=== PATIENT | male | born 1945 | race Caucasian/White ===

== ENCOUNTER → 2017-01-27 | Outpatient (CLI) | payer MEDICARE, OTHER ==
[~2017-01-27] MED LIST: ASPIRIN 81M81 MG/TA2 PO; GLUCOPHAGE500 MG/TAB PO; GLUCOTROL XL2.5 MG PO; GLUCOTROL XL5 MG/TAB PO; HYZAAR; HYZAAR 25 MG-101 TAB PO; JANUVIA 100MG100 MG PO; LEVAQUIN 750MG750 M1 PO; METFORMIN1000 MG PO; NORCO 325 MG-51 TAB PO; [UNRECOGNIZED DRUG - REMARK]
== END ==
LOC: COL.RAD 09:31
DX: I71.9 Aortic aneurysm of unspecified site, without rupture (principal); J43.9 Emphysema, unspecified; R91.8 Other nonspecific abnormal finding of lung field; R91.1 Solitary pulmonary nodule; K44.9 Diaphragmatic hernia without obstruction or gangrene; E27.8 Other specified disorders of adrenal gland; E04.9 Nontoxic goiter, unspecified; E07.89 Other specified disorders of thyroid
CPT/HCPCS: Q9967

== ENCOUNTER → 2018-01-19 | Outpatient (CLI) | payer MEDICARE, OTHER | LOC: COL.RAD 08:16 | DX: I71.4 Abdominal aortic aneurysm, without rupture (principal); E27.8 Other specified disorders of adrenal gland; J43.9 Emphysema, unspecified; Z90.49 Acquired absence of other specified parts of digestive tract; I71.2 Thoracic aortic aneurysm, without rupture | CPT/HCPCS: Q9967 ==

== ENCOUNTER → 2019-04-22 | Outpatient (CLI) | payer MEDICARE, OTHER | LOC: COL.RAD 07:50 | DX: J43.9 Emphysema, unspecified (principal); I71.2 Thoracic aortic aneurysm, without rupture; Z90.49 Acquired absence of other specified parts of digestive tract | CPT/HCPCS: Q9967 ==

== ENCOUNTER → 2021-02-23 | Outpatient (CLI) | payer MEDICARE, OTHER | LOC: COL.RAD 13:57 | DX: Z12.2 Encounter for screening for malignant neoplasm of respiratory organs (principal); F17.210 Nicotine dependence, cigarettes, uncomplicated ==

== ENCOUNTER 2021-07-08 11:57 | Outpatient (CLI) | payer MEDICARE ==
[~2021-07-08] VITALS: Ht 180.3 cm; Wt 75.0 kg
[2021-07-08] VITALS (8 sets, daily range): BP systolic 107–126; BP diastolic 53–74; PULSE 80–112; TEMP 95.3
[2021-07-08] MEDS ORDERED: PROAIR HFA0.09 MG/AC IH (12:32)
[2021-07-08] MEDS ORDERED: ZITHROMAX 250M250 MG PO (12:33)
[2021-07-08] MEDS ORDERED: PREDNISONE20 MG PO (12:34)
[2021-07-08] MEDS ORDERED: HYZAAR 25 MG-101 TAB PO (12:34)
--- NOTE | 2021-07-08 14:00 | NUR ---
Pt escorted out to ED entrance with steady gait. He tolerated infusion and 1 hr obs period without issue. INT was DC'd with catheter intact.
== END 2021-07-08 14:00 | disposition home or self-care (01) ==
LOC: EUO 11:57
DX: U07.1 COVID-19 (principal); E11.9 Type 2 diabetes mellitus without complications; I25.10 Atherosclerotic heart disease of native coronary artery without angina pectoris; J98.4 Other disorders of lung
CPT/HCPCS: M0247; Q0247

== ENCOUNTER 2023-04-16 07:51 | Observation (INO) | payer MEDICARE ==
[~2023-04-16] VITALS: Ht 177.8 cm; Wt 63.0 kg
[~2023-04-16 07:51] MED LIST changes: +ADVIL PM 38 MG-1 TAB PO; +BREZTRI AEROS10.7 GM IH; +CEFTIN500 MG PO; +COREG 6.256.25 MG/TA PO; +DOXYCYCLINE HY100 MG PO; +LEVAQUIN 5500 MG/TA1 PO; +MEDROL 4MG DOSPA4 MG PO; +PREDNISONE10 MG PO; +PREDNISONE20 MG PO; +PROAIR HFA0.09 MG/AC IH; +ZITHROMAX 250M250 MG PO
[2023-04-16 08:23] LABS: BASO # 0.1 K/mm3 (0.0-0.2); BASO % 0.6 % (0.0-2.0); EOS # 0.6 K/mm3 (0.0-0.7); GRAN # 18.3 K/mm3 (1.4-6.5); GRAN % 85.2 % (42.2-75.2); HEMATOCRIT 46.6 % (42.0-52.0); HEMOGLOBIN 14.4 g/dl (13.5-18.0); LYMPH % 4.6 % (20.0-51.0); MEAN CELL VOLUME 98 fl (80.0-100.0); MEAN CORPUSCULAR HEMOGLOBIN 30 pg (27-31); MEAN CORPUSCULAR HGB CONC 31 g/dl (33.0-37.0); MEAN PLATELET VOLUME 10.7 fl (7.4-10.4); MONO # 1.3 K/mm3 (0.1-0.6); MONO % 5.9 % (1.7-9.3); PLATELET COUNT 326 K/mm3 (130-400); RED BLOOD COUNT 4.75 M/mm3 (4.20-5.60); REDCELL DISTRIBUTION WIDTH-CV 12.7 % (11.5-14.5)
[2023-04-16 08:39] LABS: ALBUMIN 3.9 gm/dL (3.4-4.8); BILIRUBIN,TOTAL 0.9 mg/dL (0.2-1.2); CALCIUM 9.7 mg/dL (8.4-10.2); CREATININE, serum 0.76 mg/dL (0.72-1.25); POTASSIUM 4.7 mmol/L (3.5-4.5); TOTAL PROTEIN 6.7 gm/dL (6.2-8.1)
[2023-04-16 08:45] LABS: TROPONIN-I 0.018 ng/mL (0.00-0.033)
--- NOTE | 2023-04-16 11:32 | NUR ---
PATIENT ARRIVED FROM ER IN STABLE CONDITION. PATIENTS AT BEDSIDE. PATIENT DENIES ANY NEEDS OR COMPLAINTS AT THIS TIME.
[2023-04-16 11:41] VITALS: BP 147/88; PULSE 124; TEMP 97.5
[2023-04-16 13:32] VITALS: BP_SYST 147
[2023-04-16] MEDS ORDERED: LIPITOR 10MG10 MG PO (13:46)
[2023-04-16] MEDS ORDERED: ALDACTONE 25MG25 M1 PO (13:46)
[2023-04-16] MEDS ORDERED: LEVEMIR100 U/ML SQ (13:47)
--- NOTE | 2023-04-16 13:52 | NUR ---
DR RAPHAEL INFORMED BY THIS RN PATIENTS HR SUSTAINING IN THE 120S, PATIENT IS RESTING IN BED WITH NO COMPLAINTS. TORB GIVEN FOR EKG NOW. ORDER PLACED BY THIS RN AND RT ASHLEY INFORMED.
--- NOTE | 2023-04-16 14:13 | NUR ---
INFORMED OF EKG RESULT
[2023-04-16 15:40] VITALS: BP 114/69; PULSE 125; TEMP 97.7
[2023-04-16 17:14] LABS: COLLECTION METHOD CLEAN CATCH
--- NOTE | 2023-04-16 17:30 | NUR ---
RN TO PASS ON TO NIGHT NURSE PER PATIENTS FAMILY THE [facility] INFORMED THEM THEY ARE AWAITING A CALL BACK FOR CHEMIST ENZYMES TIME. PI/SENIOR RESEARCH ASSOCIATE AWARE, WILL BE PASSED ALONG IN REPORT.
[2023-04-16 17:32] LABS: SQUAMOUS EPITHELIAL 0-2 /hpf (0-10); URINE APPEARANCE Clear (CLEAR/HAZY); URINE BACTERIA Rare /hpf (NONE SEEN); URINE BLOOD Negative (NEGATIVE); URINE COLOR Yellow (YELLOW); URINE GLUCOSE 2+ (NEGATIVE); URINE KETONE 4+ (NEGATIVE); URINE NITRATE Negative (NEGATIVE); URINE PROTEIN(semi-quant) 1+ (NEGATIVE); URINE RBC None Seen /hpf (0-2); URINE UROBILINOGEN 0.2 E.U/dL (0.2-1.0)
[2023-04-16 17:33] LABS: MUCOUS Present (NOT PRESENT)
--- NOTE | 2023-04-16 17:52 | NUR ---
PATIENT ASLEEP, APPEARS TO BE RESTING COMFORTABLY IN BED. ORAL CARE PROVIDED. PATIENTS FAMILY AT BEDSIDE.
--- NOTE | 2023-04-16 18:00 | NUR ---
PATIENT AWAKE AND ALERT, RESTING IN BED. PATIENT DENIES ANY NEEDS OR COMPLAINTS AT THIS TIME. CALL LIGHT WITHIN REACH.
[2023-04-16 19:43] VITALS: BP 135/84; PULSE 114; TEMP 98.2
[2023-04-16 21:25] VITALS: BP_SYST 135
[2023-04-16 23:54] VITALS: BP 126/84; PULSE 110; TEMP 97.9
[2023-04-17] VITALS (11 sets, daily range): BP systolic 106–138; BP diastolic 62–90; PULSE 54–108; TEMP 97.6–98.1
[2023-04-17 07:10] LABS: BASO % 0.2 % (0.0-2.0); GRAN # 11.3 K/mm3 (1.4-6.5); GRAN % 89.8 % (42.2-75.2); HEMATOCRIT 39.9 % (42.0-52.0); HEMOGLOBIN 13.5 g/dl (13.5-18.0); LYMPH # 0.6 K/mm3 (1.2-3.4); MEAN CORPUSCULAR HEMOGLOBIN 31 pg (27-31); MEAN CORPUSCULAR HGB CONC 34 g/dl (33.0-37.0); MONO # 0.6 K/mm3 (0.1-0.6); MONO % 4.5 % (1.7-9.3); PLATELET COUNT 273 K/mm3 (130-400); RED BLOOD COUNT 4.33 M/mm3 (4.20-5.60); REDCELL DISTRIBUTION WIDTH-CV 12.3 % (11.5-14.5)
[2023-04-17 07:15] LABS: MEAN CELL VOLUME 92 fl (80.0-100.0)
[2023-04-17 07:27] LABS: CALCIUM 9.2 mg/dL (8.4-10.2); CREATININE, serum 0.77 mg/dL (0.72-1.25); MAGNESIUM 1.7 mg/dL (1.6-2.6); POTASSIUM 4.7 mmol/L (3.5-4.5)
--- NOTE | 2023-04-17 08:40 | NUR ---
PT SITTING IN BED EATING BREAKFAST THIS MORNING. PT WITH COMPLAINT OF UNPRODUCTIVE COUGH. PT STATES HE HAS A LOT OF PHLEM AND CANT GET IT UP WITH THE CONTINOUS COUGHING. PT STATES HIS SHORTNESS OF BREATH HAS IMPROVED SINCE ADMISSION AND IS WONDERING IF HE WILL GET TO GO HOME TODAY. LUNG SOUNDS NOTED EXPIRATORY WHEEZING THROUGHOUT. PT REMAINS ON 2L O2 VIA NC, STATES HE IS ON 2L AT HOME NORMALLY.
[2023-04-17] MEDS ORDERED: COZAAR100 MG PO (10:48)
--- NOTE | 2023-04-17 11:09 | NUR ---
Initial visit; Danny thanked for looking in on him and inquiring how he is getting along at this time after having been here awhile. He said his Chief Green Officer is available to him and he knows what is going on with Danny. prays that Danny will be up and on him way soon and wishes him well.
--- NOTE | 2023-04-17 17:01 | NUR ---
Beauty Culturist Apprentice met with Patient and at bedside to conduct Care Managment Assessment and discuss discharge planning. Patient lives in [place], [place] with his and is covered by [facility]. Patient states to be established with PCP Dr. Schulz and requests halfway medications be sent to [facility] in [place] and short term medications be sent to [facility]. Patient endorses the use of O2 at home and states that he does not have a portable concentrator on hand. Patient denies the use of other DME and endorses independency withi ADL/IADLs prior to admission. Patient states to have [facility] on file. Patient is anticipated to discharge home tomorrow.
--- NOTE | 2023-04-17 20:00 | NUR ---
UPON SHIFT ASSESSMENT, MILLI WAS UP IN BED ON THE PHONE WITH HIS . DYSPNEA WITH CONVERSATION WAS NOTED. NC 02 SET BY RT @ 1.5L. LUNG SOUNS AUSCULTATED WHEEZES DURING INSPIRATION. VSS ARE WNL WITH O2 SAT @ 94-95%. MILLI IS PLEASANT AND AXO X 4. BG WAS 291 @ 19:59. CALL LIGHT BARBARA DANIELS.
[2023-04-18] VITALS (8 sets, daily range): BP systolic 106–137; BP diastolic 52–82; PULSE 85–107; TEMP 97–98.6
[2023-04-18 05:42] LABS: CALCIUM 9.4 mg/dL (8.4-10.2); CREATININE, serum 0.73 mg/dL (0.72-1.25); POTASSIUM 4.4 mmol/L (3.5-4.5)
[2023-04-18 05:50] LABS: HEMATOCRIT 39.4 % (42.0-52.0); HEMOGLOBIN 12.9 g/dl (13.5-18.0); MEAN CELL VOLUME 93 fl (80.0-100.0); MEAN CORPUSCULAR HEMOGLOBIN 30 pg (27-31); MEAN CORPUSCULAR HGB CONC 33 g/dl (33.0-37.0); MEAN PLATELET VOLUME 11.4 fl (7.4-10.4); PLATELET COUNT 267 K/mm3 (130-400); RED BLOOD COUNT 4.24 M/mm3 (4.20-5.60); REDCELL DISTRIBUTION WIDTH-CV 12.4 % (11.5-14.5)
[2023-04-18 06:15] LABS: HYPOCHROMIA 1+; LYMPHOCYTE 2 % (20.0-51.0); NEUTROPHILS 94 % (42.0-75.2); PLATELET ESTIMATE NORMAL (NORMAL)
--- NOTE | 2023-04-18 07:44 | NUR ---
MILLI SLEPT THROUGH THE NIGHT, HOWEVER, UPON WAKING THIS MORNING AND AMBULATING TO THE RESTROOM, HE EXPERIENCED DYSPNEA ON EXERTION. WOB RESOLVED WITH REST. DENIED CHEST PAIN. VSS ARE WNL, 1.5L NC O2 AND TELE NS. CALL LIGHT WITHIN REACH
--- NOTE | 2023-04-18 09:30 | NUR ---
PT AWAKE ON BENCH UPON ENTERING, DR MADDEN AT BEDSIDE. ASSESSMENT DONE, MEDS GIVEN WITHOUT DIFFICULTY. PT AMBULATING TO BED, GAIT STEADY. PT DENIES PAIN AT THIS TIME. PT ON 1.5L NASAL CANNULA. PT UPDATED ON PLAN FOR THE DAY AND VERBALIZES UNDERSTANDING. PT DENIES NEEDS AT THIS TIME. BED IN LOWEST POSITION, CALL LIGHT IN REACH.
[2023-04-18] MEDS ORDERED: OMNICEF 300MG300 MG PO (09:47)
[2023-04-18] MEDS ORDERED: PREDNISONE20 MG PO (09:48)
--- NOTE | 2023-04-18 11:51 | NUR ---
[employer] sent request with physician order for for portable O2 consentrator to [facility] for Patient's discharge.
--- NOTE | 2023-04-18 11:59 | NUR ---
IV AND TELE DISCONTINUED. PT DRESSED IN PERSONAL CLOTHES. EXERCISE OXIMETREY DONE AND PT CURRENTLY WAITING FOR HOME O2 TO BE DELIVERED. PT ON 2L NASAL CANNULA CURRENTLY. PT DENIES NEEDS AT THIS TIME. BED IN LOWEST POSITION, CALL LIGHT IN REACH
--- NOTE | 2023-04-18 15:00 | NUR ---
PT GIVEN DISCHARGE INSTRUCTIONS, ALL QUESTIONS ANSWERED AND PT VERBALIZED UNDERSTANDING. PT IN WHEELCHAIR ALREADY WITH PERSONAL ITEMS INCLUDING HOME O2. PT DENIES NEEDS AT THIS TIME AND ESCORTED TO PERSONAL VEHICLE BY THIS NURSE VIA WHEELCHAIR.
== END 2023-04-18 15:48 | disposition home or self-care (01) ==
LOC: COL.ER 07:51 → MEDICAL 09:42
PROVIDERS: Emergency Medicine; ADMIT Hospitalist
DX: J44.1 Chronic obstructive pulmonary disease with (acute) exacerbation (principal); J96.21 Acute and chronic respiratory failure with hypoxia; I11.0 Hypertensive heart disease with heart failure; I50.22 Chronic systolic (congestive) heart failure; I73.9 Peripheral vascular disease, unspecified; R00.0 Tachycardia, unspecified; D72.829 Elevated white blood cell count, unspecified; E11.9 Type 2 diabetes mellitus without complications; I25.10 Atherosclerotic heart disease of native coronary artery without angina pectoris; E44.0 Moderate protein-calorie malnutrition; R63.4 Abnormal weight loss; R65.10 Systemic inflammatory response syndrome (SIRS) of non-infectious origin without acute organ dysfunction; F17.210 Nicotine dependence, cigarettes, uncomplicated; Z79.899 Other long term (current) drug therapy; Z79.84 Long term (current) use of oral hypoglycemic drugs; Z79.82 Long term (current) use of aspirin
CPT/HCPCS: G0378; J0456; J0696; J1650; J1815; J2920; J7050; J7120